=== PATIENT | female | born 1950 | race Hispanic/Latino ===

== ENCOUNTER 2018-05-03 06:32 | Day surgery (SDC) | payer MEDICARE ==
[2015-10-30 09:58] VITALS: BMI 29.5
[2018-05-03] MEDS ORDERED: Lidocaine PF 2% (5 ml) Inj (For Cardiac Arrhy) ONE (08:11)
[2018-05-03] MEDS ORDERED: Propofol 10 mg/ml Inj (20 ML) ONE ×4 (08:11→08:59)
[2018-05-03] MEDS ORDERED: Sodium Chloride 0.9% 1,000 ML IV SCH (09:15)
[2018-05-03 09:42] VITALS: O2SAT 99
[2018-05-03 09:47] VITALS: BP 138/72; PULSE 65; RESP 16; TEMP 98.2
== END 2018-05-03 10:32 | disposition home or self-care (01) ==
LOC: ENDO 06:32
PROVIDERS: ATTEND Specialist
DX: D12.3 Benign neoplasm of transverse colon (principal); K28.9 Gastrojejunal ulcer, unspecified as acute or chronic, without hemorrhage or perforation; K64.8 Other hemorrhoids; I12.9 Hypertensive chronic kidney disease with stage 1 through stage 4 chronic kidney disease, or unspecified chronic kidney disease; N18.4 Chronic kidney disease, stage 4 (severe); E11.22 Type 2 diabetes mellitus with diabetic chronic kidney disease; J44.9 Chronic obstructive pulmonary disease, unspecified; E78.5 Hyperlipidemia, unspecified; Z90.49 Acquired absence of other specified parts of digestive tract; Z90.710 Acquired absence of both cervix and uterus; Z88.1 Allergy status to other antibiotic agents; Z79.4 Long term (current) use of insulin
CPT/HCPCS: 45380; 45381; 45385; 88305; J2704; J7030; J7040